=== PATIENT | male | born 1945 | race Caucasian/White ===

== ENCOUNTER 2017-07-08 11:56 | Emergency (ER) | payer MEDICARE, BC ==
[2017-07-08] MEDS ORDERED: cefTRIAXone 1 GM Vial IM ONE (12:38)
--- NOTE | 2017-07-08 12:53 | EDM.PDOC ---
ED HPI GENERAL MEDICAL PROBLEM - General Chief Complaint: Skin Complaint Stated Complaint: REDNESS / SWELLING L HAND Time Seen by Provider: 07/08/17 12:08 Source of Information: Reports: Patient History Limitations: Reports: No Limitations - History of Present Illness INITIAL COMMENTS - FREE TEXT/NARRATIVE: 72 yo present to the ER in no acute distress c/o swollen left hand. Initial injury to the dorsum of hand at 3rd MP 2 weeks ago. pt describes a red papule that he then poked with a pin. over the last 3 days increase in edema, redness and pain. denies general ill feeling. denies fever chills CP or SOB - Related Data Allergies Allergy/AdvReac Type Severity Reaction Status Date / Time No Known Allergies Allergy Verified 07/08/17 12:09 Home Meds: Home Meds Aspirin 07/08/17 [History] Losartan [Cozaar] 07/08/17 [History] Metoprolol Succinate [Toprol Xl] 07/08/17 [History] amLODIPine [Norvasc] 07/08/17 [History] atorvaSTATin [Lipitor] 07/08/17 [History] Past Medical History Cardiovascular History: Reports: High Cholesterol, Hypertension Musculoskeletal History: Reports: Back Pain, Chronic - Past Surgical History HEENT Surgical History: Reports: Tonsillectomy Cardiovascular Surgical History: Reports: Coronary Artery Bypass Musculoskeletal Surgical History: Reports: Knee Replacement, Shoulder Surgery Social & Family History - Tobacco Use Smoking Status *Q: Never Smoker ED ROS GENERAL - Review of Systems Review Of Systems: See Below Constitutional: Denies: Fever, Chills, Malaise Respiratory: Denies: Shortness of Breath Cardiovascular: Denies: Chest Pain ED EXAM, SKIN/RASH Exam: See Below Exam Limited By: No Limitations General Appearance: Alert, WD/WN, No Apparent Distress Respiratory/Chest: No Respiratory Distress, Lungs Clear, Normal Breath Sounds. No: Crackles, Rhonchi, Wheezing Cardiovascular: Regular Rate, Rhythm Skin: Warm, Dry, Intact Location, Skin: Upper Extremity, Left (dorsum hand at 3rd MP) Characteristics: Erythematous (mildly warm to the touch.) Associated features: Warmth, Tenderness, Swelling. No: Crusting, Weeping Course - Vital Signs Last Recorded V/S: Last Vital Signs Temp 36.3 C 07/08/17 12:16 Pulse 69 05/26/18 12:16 Resp 14 07/08/17 12:16 BP 109/64 07/08/17 12:16 Pulse Ox 98 07/08/17 12:16 - Orders/Labs/Meds Meds: Medications Discontinued Medications Generic Name Dose Route Start Last Admin Trade Name Jo-Ann PRN Reason Stop Dose Admin Ceftriaxone Sodium 1 gm 07/08/17 12:38 Rocephin IM 07/08/17 12:39 ONETIME ONE Departure - Departure Time of Disposition: 12:50 Disposition: Home, Self-Care 01 Condition: Good Clinical Impression: Cellulitis of hand excluding fingers - Discharge Information Instructions: Cellulitis, Adult, [id number] Referrals: PCP,None [Primary Care Provider] - Forms: ED Department Discharge Additional Instructions: You receive 1 g of Rocephin in the emergency room Bactrim 1 tablet twice daily for 5 days ice for pain and swelling control If no improvement by Monday you need to be seen again at your primary care provider IF you develop a fever greater then 101 or become generally ill you need to be seen again
== END 2017-07-08 13:16 | disposition home or self-care (01) ==
LOC: JP.ED 11:56
DX: L03.114 Cellulitis of left upper limb (principal); I10 Essential (primary) hypertension; E78.00 Pure hypercholesterolemia, unspecified
CPT/HCPCS: 96372; 99283; J0696

== ENCOUNTER 2021-03-15 09:52 | Emergency (ER) | payer MEDICARE ==
[2021-03-15] MEDS ORDERED: fentaNYL 100 MCG/2 ML SDV IVPUSH ONE ×4 (09:57→19:08)
[2021-03-15] MEDS: Sodium Chloride 0.9% 1,000 ML IV SCH ×2 (10:17→18:19)
[2021-03-15 11:02] LABS: CORONAVIRUS COVID-19 NAA NEGATIVE (NEGATIVE)
[2021-03-15] MEDS ORDERED: Ertapenem 1 GM in Sodium Chloride 0.9% 100 ML IV ONE (13:30)
[2021-03-15] MEDS ORDERED: Ondansetron 4 MG Tab.DIS PO ONE (15:06)
[2021-03-15] MEDS ORDERED: Sodium Chloride 0.9% 1,000 ML IV SCH (18:00)
== END 2021-03-15 19:40 | disposition other institution (70) ==
LOC: JP.ED 09:52
DX: K68.9 Other disorders of retroperitoneum (principal); E87.2 Acidosis; R10.31 Right lower quadrant pain; R10.32 Left lower quadrant pain; I10 Essential (primary) hypertension; Z20.822 Contact with and (suspected) exposure to COVID-19
CPT/HCPCS: 0241U; 36415; 71045; 74176; 80053; 82800; 83605; 83690; 85025; 85379; 87040; 96365; 96366; 96367; 96375; 96376; 99285; J1335; J3010; J3370; J7030; J7050; Q0162

== ENCOUNTER 2024-03-14 15:06 | Emergency (ER) | payer MEDICARE ==
[2024-03-14 15:30] LABS: BASOPHILS PERCENT AUTO 0.2 % (0.1-1.3); EOSINOPHILS ABSOLUTE AUTO 0.16 K/uL (0.00-0.40); EOSINOPHILS PERCENT AUTO 1.6 % (0.0-5.4); HEMATOCRIT 37.5 % (38.4-49.7); HEMOGLOBIN 12.3 g/dL (12.9-16.9); IMMATURE GRAN ABSOLUTE AUTO 0.04 K/uL (0.00-0.23); IMMATURE GRAN PERCENT AUTO 0.4 % (0.0-0.7); LYMPHOCYTES ABSOLUTE AUTO 1.08 K/uL (0.8-3.3); MEAN CORPUSCULAR HEMOGLOBIN 29.5 pg (31.6-35.5); MEAN CORPUSCULAR HGB CONC 32.8 g/dL (31.6-35.5); MEAN CORPUSCULAR VOLUME 89.9 fL (81.4-99.0); MONOCYTES ABSOLUTE AUTO 0.96 K/uL (0.20-0.90); MONOCYTES PERCENT AUTO 9.8 % (3.3-12.6); NEUTROPHILS ABSOLUTE AUTO 7.53 K/uL (1.0-7.6); PLATELET COUNT,PLT 197 K/uL (130-375); RED BLOOD CELL COUNT 4.17 M/uL (4.14-5.76); WHITE BLOOD CELL COUNT,WBC 9.8 K/uL (3.2-11.0)
[2024-03-14 15:31] LABS: BASOPHILS ABSOLUTE AUTO 0.02 K/uL (0.00-0.10)
[2024-03-14 15:53] LABS: CALCIUM 9.8 mg/dL (8.5-10.1); CREATININE 1.9 mg/dL (0.8-1.3); EST CRCL DRUG DOSING (CG) 29.85 mL/min; POTASSIUM,K 5.5 mmol/L (3.6-5.2); TROPONIN I HIGH SENSITIVITY 6.8 pg/mL (<=60.3)
[2024-03-14 15:55] LABS: ANION GAP 17.5 mmol/L (5.0-14.0)
[2024-03-14] MEDS: Sodium Zirconium Cyclosilicate 10 GM Packet PO ONE (17:08)
== END 2024-03-14 17:35 | disposition home or self-care (01) ==
LOC: JP.ED 15:06 → JP.CLIENT 15:06
DX: R07.89 Other chest pain (principal); I10 Essential (primary) hypertension; E78.00 Pure hypercholesterolemia, unspecified; Z95.1 Presence of aortocoronary bypass graft; Z79.899 Other long term (current) drug therapy
CPT/HCPCS: 36415; 71045; 80048; 84484; 85025; 85379; 93005; 99285; A9270

== ENCOUNTER 2024-07-07 21:22 | Emergency (ER) | payer MEDICARE ==
[2024-07-07 21:43] LABS: BASOPHILS PERCENT AUTO 0.3 % (0.1-1.3); EOSINOPHILS ABSOLUTE AUTO 0.15 K/uL (0.00-0.40); EOSINOPHILS PERCENT AUTO 1.9 % (0.0-5.4); HEMATOCRIT 36.1 % (38.4-49.7); HEMOGLOBIN 11.4 g/dL (12.9-16.9); IMMATURE GRAN ABSOLUTE AUTO 0.04 K/uL (0.00-0.23); IMMATURE GRAN PERCENT AUTO 0.5 % (0.0-0.7); LYMPHOCYTES ABSOLUTE AUTO 1.35 K/uL (0.8-3.3); LYMPHOCYTES PERCENT AUTO 17.2 % (11.4-47.7); MEAN CORPUSCULAR HEMOGLOBIN 29.8 pg (31.6-35.5); MEAN CORPUSCULAR HGB CONC 31.6 g/dL (31.6-35.5); MEAN CORPUSCULAR VOLUME 94.3 fL (81.4-99.0); MONOCYTES ABSOLUTE AUTO 0.82 K/uL (0.20-0.90); MONOCYTES PERCENT AUTO 10.5 % (3.3-12.6); NEUTROPHILS ABSOLUTE AUTO 5.46 K/uL (1.0-7.6); NEUTROPHILS PERCENT AUTO 69.6 % (40.0-78.1); PLATELET COUNT,PLT 169 K/uL (130-375); RED BLOOD CELL COUNT 3.83 M/uL (4.14-5.76); WHITE BLOOD CELL COUNT,WBC 7.8 K/uL (3.2-11.0)
[2024-07-07 21:44] LABS: BASOPHILS ABSOLUTE AUTO 0.02 K/uL (0.00-0.10)
[2024-07-07] MEDS: Alum Hydrox/Mag Hydrox/Simeth 15 ML, Lidocaine 2% 15 ML PO ONE (22:03)
[2024-07-07 22:06] LABS: CALCIUM 9.3 mg/dL (8.5-10.1); CREATININE 1.2 mg/dL (0.8-1.3); EST CRCL DRUG DOSING (CG) 46.52 mL/min; POTASSIUM,K 4.3 mmol/L (3.6-5.2); TROPONIN I HIGH SENSITIVITY 9.7 pg/mL (<=60.3)
[2024-07-07 22:07] LABS: ANION GAP 15.3 mmol/L (5.0-14.0)
== END 2024-07-07 22:34 | disposition home or self-care (01) ==
LOC: JP.ED 21:22
DX: K21.9 Gastro-esophageal reflux disease without esophagitis (principal); I10 Essential (primary) hypertension; E78.00 Pure hypercholesterolemia, unspecified; Z95.5 Presence of coronary angioplasty implant and graft; Z79.899 Other long term (current) drug therapy
CPT/HCPCS: 36415; 80048; 84484; 85025; 93005; 99284; A9270; 93010; 99283